=== PATIENT | female | born 1960 | race Caucasian/White ===

== ENCOUNTER 2016-12-21 15:19 | Emergency (ER) | payer MEDICARE, MEDICAID ==
[~2016-12-21] VITALS: Ht 165.1 cm; Wt 67.0 kg
[2016-12-21 15:40] VITALS: BP 117/76
[2017-02-16] MEDS ORDERED: NORG1TAB88 PO (00:27)
[2017-02-16] MEDS ORDERED: BENZ0.5T3 PO (00:28)
[2017-02-16] MEDS ORDERED: RISP1TAB26 PO (00:29)
[2017-02-16] MEDS ORDERED: DOCU-150 PO (00:30)
[2017-02-16] MEDS ORDERED: DIVA500T PO ×2 (00:33→00:34)
[2017-02-16] MEDS ORDERED: DIPH25CA83 PO (00:36)
[2017-02-18] MEDS ORDERED: DIGO-26 PO (12:12)
[2017-02-18] MEDS ORDERED: ASPI-1160 PO (12:12)
[2017-02-19] MEDS ORDERED: AMIO100T4 PO (13:47)
== END 2016-12-21 18:15 | disposition home or self-care (01) ==
LOC: ER 15:19
DX: Z00.00 Encounter for general adult medical examination without abnormal findings (principal); F20.9 Schizophrenia, unspecified
CPT/HCPCS: 99281

== ENCOUNTER 2017-05-17 11:37 | Emergency (ER) | payer MEDICARE, MEDICAID ==
[~2017-05-17] VITALS: Ht 165.1 cm; Wt 155.0 kg
[~2017-05-17 11:37] MED LIST: AMIO100T4 PO; ASPI-1160 PO; BENZ0.5T3 PO; DIGO-26 PO; DIPH25CA83 PO; DIVA500T PO; DOCU-150 PO; NORG1TAB88 PO; RISP1TAB26 PO
[2017-05-17 19:15] VITALS: BP 128/60
== END 2017-05-17 19:16 | disposition home or self-care (01) ==
LOC: ER 11:37
DX: I48.91 Unspecified atrial fibrillation (principal); F20.9 Schizophrenia, unspecified; Z79.82 Long term (current) use of aspirin
CPT/HCPCS: 93005; 99283